=== PATIENT | male | born 1940 | race Caucasian/White ===

== ENCOUNTER 2021-10-26 13:27 | Emergency (ER) | payer MEDICARE, OTHER ==
[~2021-10-26] VITALS: Ht 172.7 cm; Wt 90.7 kg
--- NOTE | 2021-10-26 13:31 | NUR ---
BIB EMS, pt is waiting in the hallway in [facility] because there are no ER beds available.
[2021-10-26] MEDS ORDERED: CEFTRIAXONE 1 G in IV DEXTROSE 5% 50 ML IV ONE (13:45)
[2021-10-26] MEDS ORDERED: IV NORMAL SALINE 1000 ML BAG IV ONE (13:45)
[2021-10-26] MEDS ORDERED: ACETAMINOPHEN ES 500 MG TABLET PO ONE (13:45)
[2021-10-26 14:08] LABS: HEMATOCRIT 38.6 % (36.7-47.1); MEAN CORPUSCULAR HEMOGLOBIN 24.8 uug (23.8-33.4); MEAN CORPUSCULAR VOLUME 79.3 fL (73.0-96.2); PLATELET COUNT (AUTO) 208 K/uL (152-348)
[2021-10-26 14:18] LABS: CREATININE 0.7 mg/dL (0.6-1.3); POTASSIUM 3.7 mmol/L (3.5-5.1)
[2021-10-26 14:27] LABS: BILIRUBIN,DIRECT 0.1 mg/dL (0.0-0.2); BILIRUBIN,TOTAL 0.4 mg/dL (0.2-1.0); TOTAL PROTEIN, SERUM 7.5 g/dL (6.4-8.2)
[2021-10-26] MEDS ORDERED: ACETAMINOPHEN ES 500 MG TABLET ONE (15:32)
[2021-10-26] MEDS ORDERED: CEFTRIAXONE /D5W 50ML IVPB **ER PYXIS IV ONE (15:32)
[2021-10-26 16:13] LABS: *BILIRUBIN,URIN NEGATIVE (NEGATIVE); *CLARITY,URINE CLEAR (CLEAR); *COLOR,URINE YELLOW (YELLOW); *KETONES,URINE NEGATIVE (NEGATIVE); LEUKOCYTE ESTERASE ,URINE 1+ (NEGATIVE); NITRITE, URINE POSITIVE (NEGATIVE); UGLUCOSE NEGATIVE (NEGATIVE)
[2021-10-26 16:28] LABS: *BLOOD, URINE TRACE (NEGATIVE)
[2021-10-26] MEDS ORDERED: CEPH500C2 PO (16:35)
--- NOTE | 2021-10-26 17:06 | NUR ---
DC, RX AND FOLLOW UP INSTRUCTIONS GIVEN AND EXPLAINED TO PATIENT AND FAMILY WHO STATE THEY UNDERSTAND ALL INSTRUCTIONS
--- NOTE | 2021-10-26 17:06 | NUR ---
IV removed. Catheter intact and site benign. Pressure and 4x4 gauze applied to site. No bleeding noted.
[2021-10-26 18:28] LABS: BACTERIA,URINE MANY /HPF (NONE SEEN); SQUAMOUS EPITHELIAL CELL,UR MODERATE /HPF (NONE SEEN); WBC,URINE 20-50 /HPF (0-3)
== END 2021-10-26 17:36 | disposition home or self-care (01) ==
LOC: ER 13:27
DX: N39.0 Urinary tract infection, site not specified (principal); Z87.440 Personal history of urinary (tract) infections
CPT/HCPCS: 36415; 71045; 80048; 80076; 81001; 83605; 84145; 84484; 85025; 87040 ×2; 87086; 93005; 96365; 99285; J0696; 70030-TC; 87077; A4663; A9150; J7030